=== PATIENT | female | born 1930 | race Caucasian/White ===

== ENCOUNTER 2016-05-29 16:04 | Inpatient (IN) | payer OTHER ==
[~2016-05-29] VITALS: Ht 160 cm; Wt 74.8 kg
[~2016-05-29 16:04] MED LIST: ARICEPT10 MG PO; ASPIRIN EC81 MG PO; DEPAKOTE250 MG PO; DEXILANT30 MG PO; DIAMOX 250 MG250 MG PO; DOCUSATE CALCI240 MG PO; ELIQUIS2.5 MG PO; HYDROCODON-ACE1 EAC4 PO; INVANZ1 GM IV; IPRAT-ALBUT 0.5-3 ML INH; LACTULOSE10 GM/15 M PO; LANTUS100 UNIT/1 SQ; LEVAQUIN I500 MG/100 IV; LEVOTHYROXINE125 MCG PO; LIPITOR TAB 1010 MG PO; LIQUITEARS15 ML OU; LORATADINE10 MG PO; MIRALAX17 GM PO; MULTI-VITAMIN1 EACH PO; NAMENDA10 MG PO; NEURONTIN 300300 MG PO; NEURONTIN 400400 MG PO; NITRO-DUR 0.4 MG1 EA TD; NORVASC 5 MG TAB5 MG PO; NOVOLOG FL100 UNIT/1 SQ; OMNICEF 300 MG300 MG PO; PATADAY2.5 ML OU; REFRESH PLUS1 EACH OU; SENNA LAX8.6 MG PO; TOPROL XL25 MG PO; TYLENOL 500 MG500 MG PO; VITAMIN B-1000 MCG/M IM; VITAMIN D50000 UNIT PO; ZYLOPRIM 100 M100 MG PO
[2016-05-29 17:34] LABS: HEMOGLOBIN 7.2 gm/dl (12.3-15.3); RED BLOOD COUNT 3.81 M/UL (4.00-5.10); WHITE BLOOD COUNT 4.5 K/UL (4.5-11.0)
[2016-05-29 18:03] LABS: BUN/CREATININE RATIO 48 (0-10)
[2016-05-29] MEDS ORDERED: BISCOLAX10 MG PR (23:49)
[2016-05-29] MEDS ORDERED: FLONASE 0.05% N16 GM (23:50)
[2016-05-29] MEDS ORDERED: POLYSPORIN OP3.5 GM OP (23:51)
[2016-05-29] MEDS ORDERED: LANTUS100 UNIT/1 SQ (23:52)
[2016-05-30 12:48] LABS: WHITE BLOOD COUNT 5.4 K/UL (4.5-11.0)
[2016-05-30 12:53] LABS: BUN/CREATININE RATIO 44 (0-10)
[2016-05-30 12:55] LABS: HEMOGLOBIN 10.5 gm/dl (12.3-15.3); RED BLOOD COUNT 4.87 M/UL (4.00-5.10)
[2016-05-30 14:28] LABS: HEMOGLOBIN 9.7 gm/dl (12.3-15.3); RED BLOOD COUNT 4.57 M/UL (4.00-5.10); WHITE BLOOD COUNT 4.9 K/UL (4.5-11.0)
[2016-05-30 15:28] LABS: BUN/CREATININE RATIO 42 (0-10)
[2016-05-31 04:02] LABS: HEMOGLOBIN 9.8 gm/dl (12.3-15.3); RED BLOOD COUNT 4.64 M/UL (4.00-5.10); WHITE BLOOD COUNT 5.7 K/UL (4.5-11.0)
[2016-05-31 04:22] LABS: BUN/CREATININE RATIO 44 (0-10)
[2016-06-01 03:54] LABS: HEMOGLOBIN 9.8 gm/dl (12.3-15.3); RED BLOOD COUNT 4.64 M/UL (4.00-5.10); WHITE BLOOD COUNT 6.3 K/UL (4.5-11.0)
[2016-06-01 04:14] LABS: BUN/CREATININE RATIO 46 (0-10)
[2016-06-02 04:01] LABS: HEMOGLOBIN 10.2 gm/dl (12.3-15.3); RED BLOOD COUNT 4.73 M/UL (4.00-5.10); WHITE BLOOD COUNT 5.7 K/UL (4.5-11.0)
[2016-06-02 04:04] LABS: BUN/CREATININE RATIO 38 (0-10)
== END 2016-06-02 13:00 | DRG 189 ==
LOC: ER1 16:04 → ZEROF 19:00 → PROG CARE 19:00
PROVIDERS: Emergency Medicine; Family Medicine; ADMIT Internal Medicine
PROC: 30233N1 Transfusion of Nonautologous Red Blood Cells into Peripheral Vein, Percutaneous Approach (ICD-10-PCS; principal; 2016-05-29)
DX: J96.22 Acute and chronic respiratory failure with hypercapnia (principal); I50.33 Acute on chronic diastolic (congestive) heart failure; I13.0 Hypertensive heart and chronic kidney disease with heart failure and stage 1 through stage 4 chronic kidney disease, or unspecified chronic kidney disease; J98.11 Atelectasis; E66.2 Morbid (severe) obesity with alveolar hypoventilation; I48.92 Unspecified atrial flutter; J96.21 Acute and chronic respiratory failure with hypoxia; N18.3 Chronic kidney disease, stage 3 (moderate); D63.8 Anemia in other chronic diseases classified elsewhere; I48.0 Paroxysmal atrial fibrillation; E11.22 Type 2 diabetes mellitus with diabetic chronic kidney disease; J44.9 Chronic obstructive pulmonary disease, unspecified; I25.10 Atherosclerotic heart disease of native coronary artery without angina pectoris; M19.90 Unspecified osteoarthritis, unspecified site; M10.9 Gout, unspecified; F17.220 Nicotine dependence, chewing tobacco, uncomplicated; H91.90 Unspecified hearing loss, unspecified ear; K21.9 Gastro-esophageal reflux disease without esophagitis; G30.9 Alzheimer's disease, unspecified; F02.80 Dementia in other diseases classified elsewhere, unspecified severity, without behavioral disturbance, psychotic disturbance, mood disturbance, and anxiety; Z82.3 Family history of stroke; E78.5 Hyperlipidemia, unspecified; D64.9 Anemia, unspecified; Z79.01 Long term (current) use of anticoagulants; Z82.0 Family history of epilepsy and other diseases of the nervous system; Z83.3 Family history of diabetes mellitus; Z82.49 Family history of ischemic heart disease and other diseases of the circulatory system; Z79.1 Long term (current) use of non-steroidal anti-inflammatories (NSAID); Z79.891 Long term (current) use of opiate analgesic; Z79.899 Other long term (current) drug therapy; Z79.4 Long term (current) use of insulin; Z95.5 Presence of coronary angioplasty implant and graft; E03.9 Hypothyroidism, unspecified; I25.2 Old myocardial infarction; L40.50 Arthropathic psoriasis, unspecified; Z86.73 Personal history of transient ischemic attack (TIA), and cerebral infarction without residual deficits; K08.109 Complete loss of teeth, unspecified cause, unspecified class; Z99.81 Dependence on supplemental oxygen
CPT/HCPCS: ECHO; 36415; 36430; 36600; 51702; 71010; 80048; 80053; 81001; 82272; 82550; 82553; 82728; 82803; 82962; 83540; 83550; 83615; 83735; 83880; 84132; 84443; 84484; 85025; 85027; 85610; 85730; 86850; 86900; 86901; 86920; 93005; 93306; 94640; 94660; 94664; 99285; G0378; J1120; J1940; J3480; J7050; P9016

== ENCOUNTER 2016-07-02 01:27 | Inpatient (IN) | payer MEDICARE, OTHER ==
[~2016-07-02] VITALS: Ht 160 cm; Wt 75.8 kg
[~2016-07-02 01:27] MED LIST changes: +BISCOLAX10 MG PR; +FLONASE 0.05% N16 GM; +POLYSPORIN OP3.5 GM OP
[2016-07-02 01:58] LABS: HEMOGLOBIN 9.6 gm/dl (12.3-15.3); RED BLOOD COUNT 4.32 M/UL (4.00-5.10); WHITE BLOOD COUNT 9.2 K/UL (4.5-11.0)
[2016-07-02 02:17] LABS: BUN/CREATININE RATIO 54 (0-10)
[2016-07-02] MEDS ORDERED: DIAMOX 250 MG250 MG PO (05:36)
[2016-07-02 09:49] LABS: BODY FLUID SOURCE PLEURAL
[2016-07-02 10:03] LABS: LDH, BODY FLUID 102 U/L; TOTAL PROTEIN, BODY FLUID 2.8 gm/dL
[2016-07-03 03:50] LABS: HEMOGLOBIN 9.8 gm/dl (12.3-15.3); RED BLOOD COUNT 4.4 M/UL (4.00-5.10); WHITE BLOOD COUNT 7.7 K/UL (4.5-11.0)
[2016-07-03 04:15] LABS: BUN/CREATININE RATIO 63 (0-10)
[2016-07-04 03:51] LABS: HEMOGLOBIN 8.4 gm/dl (12.3-15.3); WHITE BLOOD COUNT 6.5 K/UL (4.5-11.0)
[2016-07-04 03:53] LABS: RED BLOOD COUNT 3.8 M/UL (4.00-5.10)
[2016-07-04 04:06] LABS: BUN/CREATININE RATIO 57 (0-10)
[2016-07-05 03:33] LABS: HEMOGLOBIN 10.2 gm/dl (12.3-15.3)
[2016-07-05 03:34] LABS: RED BLOOD COUNT 4.49 M/UL (4.00-5.10)
[2016-07-05 04:03] LABS: BUN/CREATININE RATIO 70 (0-10)
[2016-07-06 03:50] LABS: HEMOGLOBIN 9.2 gm/dl (12.3-15.3); RED BLOOD COUNT 4.1 M/UL (4.00-5.10); WHITE BLOOD COUNT 7.4 K/UL (4.5-11.0)
[2016-07-06 04:05] LABS: BUN/CREATININE RATIO 63 (0-10)
[2016-07-07 04:43] LABS: BUN/CREATININE RATIO 60 (0-10)
[2016-07-08 04:08] LABS: HEMOGLOBIN 8.9 gm/dl (12.3-15.3); RED BLOOD COUNT 3.97 M/UL (4.00-5.10); WHITE BLOOD COUNT 7.1 K/UL (4.5-11.0)
[2016-07-08 04:29] LABS: BUN/CREATININE RATIO 55 (0-10)
[2016-07-09 03:11] LABS: HEMOGLOBIN 8.3 gm/dl (12.3-15.3); RED BLOOD COUNT 3.68 M/UL (4.00-5.10)
[2016-07-09 03:42] LABS: BUN/CREATININE RATIO 38 (0-10)
[2016-07-10 07:19] LABS: HEMOGLOBIN 9.1 gm/dl (12.3-15.3); WHITE BLOOD COUNT 6.2 K/UL (4.5-11.0)
[2016-07-10 07:27] LABS: BUN/CREATININE RATIO 40 (0-10)
== END 2016-07-10 13:43 | DRG 207 ==
LOC: ER1 01:27 → ZEROF 04:05 → CCU 04:05 → M/S 07-09 14:30
PROVIDERS: Family Medicine; Internal Medicine; Internal Medicine Pulmonary Disease; ADMIT Emergency Medicine
PROC: 5A1955Z Respiratory Ventilation, Greater than 96 Consecutive Hours (ICD-10-PCS; principal; 2016-07-02)
PROC: 0BH17EZ Insertion of Endotracheal Airway into Trachea, Via Natural or Artificial Opening (ICD-10-PCS; principal; 2016-07-02)
PROC: 0W993ZZ Drainage of Right Pleural Cavity, Percutaneous Approach (ICD-10-PCS; 2016-07-02)
PROC: B543ZZA Ultrasonography of Right Jugular Veins, Guidance (ICD-10-PCS; 2016-07-05)
PROC: 05HM33Z Insertion of Infusion Device into Right Internal Jugular Vein, Percutaneous Approach (ICD-10-PCS; 2016-07-05)
DX: J96.21 Acute and chronic respiratory failure with hypoxia (principal); I50.33 Acute on chronic diastolic (congestive) heart failure; G92 Toxic encephalopathy; E66.2 Morbid (severe) obesity with alveolar hypoventilation; J98.11 Atelectasis; E87.0 Hyperosmolality and hypernatremia; I48.92 Unspecified atrial flutter; J96.22 Acute and chronic respiratory failure with hypercapnia; Z99.81 Dependence on supplemental oxygen; F03.90 Unspecified dementia, unspecified severity, without behavioral disturbance, psychotic disturbance, mood disturbance, and anxiety; I11.0 Hypertensive heart disease with heart failure; E11.22 Type 2 diabetes mellitus with diabetic chronic kidney disease; N18.3 Chronic kidney disease, stage 3 (moderate); E87.6 Hypokalemia; E83.42 Hypomagnesemia; D63.1 Anemia in chronic kidney disease; R13.10 Dysphagia, unspecified; I48.0 Paroxysmal atrial fibrillation; T50.995A Adverse effect of other drugs, medicaments and biological substances, initial encounter; Y92.230 Patient room in hospital as the place of occurrence of the external cause; K21.9 Gastro-esophageal reflux disease without esophagitis; I25.10 Atherosclerotic heart disease of native coronary artery without angina pectoris; L40.50 Arthropathic psoriasis, unspecified; M10.9 Gout, unspecified; M19.90 Unspecified osteoarthritis, unspecified site; I25.2 Old myocardial infarction; Z95.5 Presence of coronary angioplasty implant and graft; I27.2 Other secondary pulmonary hypertension; M51.36 Other intervertebral disc degeneration, lumbar region; E03.9 Hypothyroidism, unspecified; Z86.73 Personal history of transient ischemic attack (TIA), and cerebral infarction without residual deficits; Z85.41 Personal history of malignant neoplasm of cervix uteri; Z68.29 Body mass index [BMI] 29.0-29.9, adult; Z90.710 Acquired absence of both cervix and uterus; F17.210 Nicotine dependence, cigarettes, uncomplicated; Z82.3 Family history of stroke; Z82.0 Family history of epilepsy and other diseases of the nervous system; Z82.49 Family history of ischemic heart disease and other diseases of the circulatory system; Z83.3 Family history of diabetes mellitus; Z79.1 Long term (current) use of non-steroidal anti-inflammatories (NSAID); Z79.891 Long term (current) use of opiate analgesic; Z79.899 Other long term (current) drug therapy; Z79.4 Long term (current) use of insulin
CPT/HCPCS: 31500; 36415; 36600; 71010; 80048; 80053; 82150; 82550; 82553; 82803; 82945; 82962; 83615; 83735; 83874; 83986; 84075; 84132; 84157; 84439; 84443; 84484; 85025; 85027; 87070; 87205; 89051; 92610; 93005; 94002; 94003; 94660; 94760; 99284; A4628; C1751; C9113; J0330; J1120; J1265; J1650; J1940; J2250; J2310; J7040; J7070